=== PATIENT | male | born 1965 | race Hispanic/Latino ===

== ENCOUNTER 2022-03-05 06:20 | Day surgery (SDC) | payer OTHER ==
[2022-03-04 12:20] LABS: Potassium 3.8 mmol/L (3.5-5.1)
[2022-03-05] MEDS ORDERED: NA CHLORIDE 0.9% 1,000 ML ONE (06:44)
--- NOTE | 2022-03-05 07:20 | EKG ---
Test Date: 2022-03-04 Test Time: 11:46:56 Admission Nurse: NACHO MEASUREMENT RESULTS: Intervals: Rate: 68 WY: 154 QRSD: 78 QT: 404 QTc: 429 [place]: P: 63 W[place]: 154 QRS: 60 T: 60 INTERPRETIVE STATEMENTS: Normal sinus rhythm Normal ECG No previous ECG available for comparison Electronically Signed On 03-05-22 07:17:37 CDT by Francisco Romero
[2022-03-05] MEDS ORDERED: propofoL 200 MG/20 ML VIAL IV ONE ×3 (07:50→07:51)
[2022-03-05] MEDS ORDERED: LIDOCAINE 1% MPF 5 ML VIAL ONE (07:50)
--- NOTE | 2022-03-05 08:10 | ENDO RPT ---
[address], [address] COLONOSCOPY PROCEDURE REPORT EXAM DATE: 03/05/2022 PATIENT NAME: Shan Holguin MR #: [id number] BIRTHDATE: 1965 ATTENDING: Omkar Hinojosa DR STATUS: outpatient ZIGZAG APPLIQUER: Shaggy Feliz and Emily Alexandre RN INDICATIONS: The patient is a 57 yr old Male here for a colonoscopy due to colon cancer screening PROCEDURE PERFORMED: Colonoscopy with biopsy - cold polypectomy MEDICATIONS: Per Anesthesia. ESTIMATED BLOOD LOSS: None CONSENT: The patient understands the risks and benefits of the procedure and understands that these risks include, but are not limited to: sedation, allergic reaction, infection, perforation and/or bleeding. Alternative means of evaluation and treatment include, among others: physical exam, x-rays, and/or surgical intervention. The patient elects to proceed with this endoscopic procedure. DESCRIPTION OF PROCEDURE: During intra-op preparation period all mechanical medical equipment was checked for proper function. Hand hygiene and appropriate measures for infection prevention was taken. Procedure, possible complications, alternatives including, but not limited to possibility of bleeding, perforation, tear, infection, sepsis, need for surgery, need for blood transfusion, were explained to the patient. After the risks, benefits and alternatives of the procedure were thoroughly explained, Informed consent was verified, confirmed and timeout was successfully executed by the treatment team. The patient was placed in the left lateral position. A digital rectal exam was performed and revealed internal hemorrhoids and A digital rectal exam was performed and revealed several skin tags. After appropriate level of anesthesia, the scope was passed. The EC-[id number] ([id number]) endoscope was introduced through the anus and advanced to the ileum. The quality of the prep was fair. The instrument was then slowly withdrawn as the colon was fully examined. Scope withdrawal time was 10 minutes. COLON FINDINGS: There was mild diverticulosis noted in the sigmoid colon with associated muscular hypertrophy. No bleeding was noted from the diverticulosis. A polypoid shaped and smooth pedunculated polyp ranging between 3-7mm in size was found in the sigmoid colon. A polypectomy was performed using snare cautery. The resection was complete, the polyp tissue was completely retrieved and sent to histology. Small internal hemorrhoids were found. Retroflexed views revealed no abnormalities. The scope was then completely withdrawn from the patient and the procedure terminated. ADVERSE EVENTS: There were no complications. IMPRESSIONS: 1. There was mild diverticulosis noted in the sigmoid colon 2. Pedunculated polyp ranging between 3-7mm in size was found in the sigmoid colon; polypectomy was performed using snare cautery 3. Small internal hemorrhoids RECOMMENDATIONS: 1. avoid NSAIDS for 2 weeks 2. await biopsy results 3. follow-up: office 2 week(s) 4. Monitor for any evidence of rectal bleeding. 5. yearly hemoccult starting in 4 years 6. yearly hemoquant 7. hemorrhoidal hygiene 8. increase dietary water 9. low fiber / diverticular diet RECALL: for Colonoscopy, pending biopsy results. Omkar Hinojosa DR eSigned: Omkar Hinojosa DR 03/05/2022 8:09 AM cc: CPT CODES: ICD9 CODES: PATIENT NAME: Shan Holguin MR#: [id number]
[2022-03-05 08:53] VITALS: BP 136/85; TEMP 97.8; O2SAT 94
== END 2022-03-05 08:38 | disposition home or self-care (01) ==
LOC: OR 06:20
PROVIDERS: ATTEND Surgery
PROC: 0DBN8ZX Excision of Sigmoid Colon, Via Natural or Artificial Opening Endoscopic, Diagnostic (ICD-10-PCS; principal; 2022-03-05 08:00)
DX: Z12.11 Encounter for screening for malignant neoplasm of colon (principal); K63.5 Polyp of colon; K57.30 Diverticulosis of large intestine without perforation or abscess without bleeding; K64.8 Other hemorrhoids; Z20.822 Contact with and (suspected) exposure to COVID-19
CPT/HCPCS: 45385; 93005; 80048; 36415; 82947; 88305; U0003; J2704 ×3; J7030

== ENCOUNTER 2022-03-12 09:40 | Day surgery (SDC) | payer OTHER ==
[2022-03-10 16:12] LABS: Absolute Lymphocytes (CBC) 2.1 K/uL (0.7-4.9); Hematocrit 44.2 % (39.6-49.0); Lymphocytes % 26.5 % (15.3-44.8); MPV 9.7 fL (7.6-11.3); RBC Red Blood Cell Count 4.81 M/uL (4.33-5.43)
[2022-03-10 16:41] LABS: SARS-CoV-2 Antigen Rapid Res Negative (Negative)
[2022-03-12] MEDS ORDERED: CEFAZOLIN 2 GM IN 0.9% NACL 2 GM/100 ML BAG ONE (09:51)
[2022-03-12] MEDS ORDERED: NA CHLORIDE 0.9% 1,000 ML ONE ×2 (09:51→14:46)
[2022-03-12] MEDS ORDERED: BUPIVACA 0.5%/EPI 0.0005%/PF 30 ML VIAL ONE (10:30)
[2022-03-12] MEDS ORDERED: MIDAZOLAM HCL 2 MG/2 ML INJ ONE (10:39)
[2022-03-12] MEDS ORDERED: LIDOCAINE 1% MPF 5 ML VIAL ONE (10:39)
[2022-03-12] MEDS ORDERED: propofoL 200 MG/20 ML VIAL IV ONE (10:39)
[2022-03-12] MEDS ORDERED: dexAMETHasone 10 MG/ML VIAL ONE (10:39)
[2022-03-12] MEDS ORDERED: FENTANYL CITR 100 MCG/2 ML ONE ×2 (10:39→12:38)
[2022-03-12] MEDS ORDERED: ROCURONIUM 50 MG/5 ML VIAL IV ONE (10:39)
[2022-03-12] MEDS ORDERED: ONDANSETRON 4 MG/2 ML VIAL ONE (10:40)
[2022-03-12] MEDS ORDERED: LABETALOL HCL 100 MG/20 ML ONE (10:42)
[2022-03-12] MEDS ORDERED: ACETAMINOPHEN 500 MG TAB ONE (10:43)
[2022-03-12] MEDS ORDERED: GLYCOPYRROLATE 0.2 MG/ML SYR ONE (12:38)
[2022-03-12] MEDS ORDERED: KETOROLAC 30 MG/ML INJ ONE (13:00)
--- NOTE | 2022-03-12 13:10 | P.OP ---
Preoperative diagnosis: Ventral Incisional Hernia Postoperative diagnosis: Ventral Incisional Hernia Primary procedure: Laparoscopic Ventral Incisional Hernia repair with mesh Secondary procedure: Laparoscopic adhesiolysis Anesthesia: GETA + Local Estimated blood loss: <10cc Specimen: none Findings: multiple ventral abdominal hernias Complications: None Implants: Bard Ventralite ST Mesh with Echo 15cm x 20cm, sorbafix tacker Transferred to: Recovery Room Condition: Good
[2022-03-12] MEDS: HYDROMORPHONE HCL 1 MG/ML INJ ONE ×2 (13:50→14:00)
[2022-03-12] MEDS ORDERED: HYDROCODONE/APAP 10/325 TAB ONE (15:02)
[2022-03-12 16:34] VITALS: O2SAT 98
[2022-03-12 16:46] VITALS: BP 146/87
[2022-03-12 16:47] VITALS: TEMP 97.9
--- NOTE | 2022-03-13 00:50 | OP ---
Date of Procedure: 03/12/2022 Surgeon: Omkar Hinojosa MD, Preoperative Diagnosis: Ventral incisional hernia. Postoperative Diagnosis: Ventral incisional hernia. Procedures Performed: 1.Ventral incisional hernia repair with mesh. 2.Laparoscopic adhesiolysis. Anesthesia: General endotracheal plus local with 0.5% Marcaine with epinephrine. Estimated Blood Loss: 5 mL. Specimen: None. Findings: Multiple ventral abdominal hernias approximately 6 noted, just off midline, of various siz es with a [place] cheese type appearance. Complications: None. Implants: Bard Ventralight ST mesh with Echo positioning System, 15 x 20 cm with the SorbaFix Tacker used for fixation, 90 tacks utilized. Disposition: The patient transferred to recovery room in good condition. Procedure In Detail: After informed consent was obtained, the patient was brought to the operating r oom, prepped and draped in the usual sterile fashion. After adequate anesthesia was achieved, the ar ea of the left upper quadrant was anesthetized with 0.25% Marcaine, sharply incised. A 5 mm 0-degree optical trocar was introduced in the abdomen without evidence of complication. Insufflation was obt ained to 15 mmHg at this time. There was no injury to vital structures upon entry into the abdomen. Additional trocar placed in the left lower quadrant. This similarly was anesthetized and sharply in cised. A 12 mm trocar was placed under direct visualization without evidence of complication. After this was performed, an extensive adhesiolysis for approximately 1.5 hours to remove significant scar tissue from the anterior abdominal wall using the LigaSure device and blunt dissection. No obvious bowel injuries were appreciated throughout the procedure. After the abdominal wall was swept clean, multiple abdominal hernias approximately 6 were described just off midline extending for approximatel y 14 cm in length. I therefore, brought a 20 x [address] mesh with Echo positioning System into the 12 mm trocar, positioned centrally on the portion of the defect and deployed the ball oon deployment system. There was a defect in the balloon deployment system and did not hold air. As such, I secured to the mesh anterior abdominal wall using SorbaFix single crown at this point, remov ed the balloon deployment system and found the rings to be intact. At this point, I used approximate ly 90 tacks to perform a double crown securing of mesh to the anterior abdominal wall with good appos ition attached to the abdominal wall under desufflation pressure. At that point, the abdomen was inf lated fully. The area was copiously irrigated, suctioned out to completely dry. No obvious bowel in jury or other bleeding was appreciated throughout the procedure. As such, patient was rolled slightl y away from sc. I then closed the left lower quadrant trocar site with the Kar-Isabel suture pa sser with 0 Vicryl in interrupted fashion with good approximation of tissues. The abdomen was comple tely desufflated under direct vision without complication. All remaining trocars were removed and af ter the abdomen was completely desufflated under direct vision. All skin incisions were copiously ir rigated and closed with a 4-0 Monocryl in a running fashion. Dermabond placed over the top. The umb ilical positioning suture was closed using 2-0 nylon in an interrupted fashion. The patient tolerate d the procedure well without any evidence of complications and transferred to PACU in good condition. All counts were correct at the end of the case. PETE/LA NENA Voice ID: [id number] Report ID: [id number]
== END 2022-03-12 16:20 | disposition home or self-care (01) ==
LOC: OR 09:40
PROVIDERS: ATTEND Surgery
PROC: 0DNW4ZZ Release Peritoneum, Percutaneous Endoscopic Approach (ICD-10-PCS; 2022-03-12)
PROC: 0WUF4JZ Supplement Abdominal Wall with Synthetic Substitute, Percutaneous Endoscopic Approach (ICD-10-PCS; principal; 2022-03-12 11:45)
DX: K43.2 Incisional hernia without obstruction or gangrene (principal); Z20.822 Contact with and (suspected) exposure to COVID-19
CPT/HCPCS: 85025; 36415; 82947; 87811; 49654; 49329; J2704; J2250; J3010 ×2; J1100; J1170; J0690; J7030 ×2; J2405